=== PATIENT | female | born 1965 | race Two or more races ===

== ENCOUNTER 2018-05-31 11:09 | Outpatient (CLI) | payer OTHER ==
[~2018-05-31 11:09] MED LIST: BISOPROLOL-HCT1 EACH
== END 2018-05-31 12:01 | disposition home or self-care (01) ==
LOC: RAD 501 11:09
DX: J32.0 Chronic maxillary sinusitis (principal); R06.09 Other forms of dyspnea; R06.02 Shortness of breath; G57.21 Lesion of femoral nerve, right lower limb

== ENCOUNTER 2019-01-21 18:38 | Emergency (ER) | payer OTHER ==
[~2019-01-21] VITALS: Ht 165.1 cm; Wt 108.9 kg
[2019-01-21] MEDS ORDERED: GLUCOPHAGE XR750 MG (19:08)
== END 2019-01-21 22:03 | disposition home or self-care (01) ==
LOC: ER 18:38
DX: M62.838 Other muscle spasm (principal)

== ENCOUNTER 2021-01-04 06:15 | Emergency (ER) | payer OTHER ==
[~2021-01-04] VITALS: Ht 165.1 cm; Wt 108.9 kg
[~2021-01-04 06:15] MED LIST changes: +GLUCOPHAGE XR750 MG
[2021-01-04] MEDS ORDERED: LIPITOR20 MG (06:31)
[2021-01-04] MEDS ORDERED: ORPHENADRINE C100 MG PO (08:57)
[2021-01-04] MEDS ORDERED: KETO10TA2 PO (08:57)
== END 2021-01-04 09:52 ==
LOC: ER 06:15
DX: M67.813 Other specified disorders of tendon, right shoulder (principal); E11.9 Type 2 diabetes mellitus without complications; I10 Essential (primary) hypertension

== ENCOUNTER 2021-06-27 07:33 | Outpatient (CLI) | payer OTHER ==
[~2021-06-27 07:33] MED LIST changes: +KETO10TA2 PO; +LIPITOR20 MG; +ORPHENADRINE C100 MG PO
== END 2021-06-27 10:55 | disposition home or self-care (01) ==
LOC: LAB 07:33
PROVIDERS: ATTEND Obstetrics & Gynecology Gynecology
DX: E03.8 Other specified hypothyroidism (principal); E11.65 Type 2 diabetes mellitus with hyperglycemia; E78.2 Mixed hyperlipidemia; E55.9 Vitamin D deficiency, unspecified

== ENCOUNTER 2022-05-20 09:17 | Emergency (ER) | payer OTHER ==
[~2022-05-20] VITALS: Ht 162.6 cm; Wt 99.8 kg
[2022-05-20] MEDS ORDERED: CANDESARTAN CILE4 MG PO (09:47)
== END 2022-05-20 13:22 | disposition home or self-care (01) ==
LOC: ER 09:17
DX: B34.9 Viral infection, unspecified (principal); Z20.822 Contact with and (suspected) exposure to COVID-19

== ENCOUNTER 2023-02-24 10:37 | Outpatient (CLI) | payer OTHER ==
[~2023-02-24 10:37] MED LIST changes: +CANDESARTAN CILE4 MG PO
== END 2023-02-24 10:41 | disposition home or self-care (01) ==
LOC: SONOGRAMA 10:37
PROVIDERS: ATTEND Obstetrics & Gynecology Gynecology
DX: R10.2 Pelvic and perineal pain (principal)

== ENCOUNTER 2023-05-10 07:03 | Day surgery (SDC) | payer OTHER ==
[2023-05-10] MEDS ORDERED: IBU600 MG PO (13:57)
== END 2023-05-10 19:10 | disposition home or self-care (01) ==
LOC: CIR.AMB 07:03
PROVIDERS: ATTEND Obstetrics & Gynecology Gynecology
DX: N84.0 Polyp of corpus uteri (principal)

== ENCOUNTER 2024-12-25 09:20 | Outpatient (CLI) | payer OTHER ==
[~2024-12-25 09:20] MED LIST changes: +IBU600 MG PO
== END 2024-12-25 09:40 | disposition home or self-care (01) ==
LOC: MRI 09:20
PROVIDERS: ATTEND Orthopaedic Surgery
DX: M25.562 Pain in left knee (principal); M25.561 Pain in right knee; M25.551 Pain in right hip; M25.552 Pain in left hip; E04.2 Nontoxic multinodular goiter
CPT/HCPCS: 73721